=== PATIENT | male | born 1980 | race Caucasian/White ===

== ENCOUNTER 2019-11-02 17:43 | Emergency (ER) | payer OTHER ==
[2019-11-03 11:48] LABS: SARS-CoV-2 MS2 Positive; SARS-CoV-2 N Gene Negative; SARS-CoV-2 S Gene Negative; SARS-CoV-2 orf1ab Negative
== END 2019-11-02 18:16 | disposition home or self-care (01) ==
LOC: ERS 17:43
DX: R50.9 Fever, unspecified (principal); M79.10 Myalgia, unspecified site; Z20.828 Contact with and (suspected) exposure to other viral communicable diseases; F25.9 Schizoaffective disorder, unspecified
CPT/HCPCS: 87635; 99283; U0003

== ENCOUNTER 2021-04-30 05:15 | Inpatient (IN) | payer SELFPAY ==
[2021-04-30] MEDS ORDERED: Ondansetron PF 4 MG/2 ML Vial ONE ×2 (05:44→09:07)
[2021-04-30 05:56] LABS: #Eosinphils 0.2 thou/uL (0.0-0.7); #Lymphocytes 1.9 thou/uL (1.20-3.40); #Monocytes 0.8 thou/uL (0.11-0.59); #Neutrophils 7.4 thou/uL (1.40-6.50); %Basophils 0.4 % (0.0-1.0); %Eosinophils 1.6 % (0.0-10.0); %Lymphocytes 18.1 % (21.0-51.0); %Monocytes 7.5 % (0.0-10.0); %Neutrophils 72.4 % (42.0-75.0); Hemoglobin 15.8 g/dL (14.0-18.0); Mean Corpuscular HGB CONC 33.4 g/dL (32.0-36.0); Mean Corpuscular Hemoglobin 28.6 pg (27.0-31.0); Mean Corpuscular Volume 85.6 fL (78.0-98.0); Mean Platelet Volume 7.8 fL (7.4-10.4); Platelet Count 432 thou/uL (130-400); RBC Distribution Width 11.7 % (11.5-14.5); Red Blood Cell (RBC) Count 5.51 mill/uL (4.70-6.10); White Blood Cell (WBC) Count 10.2 thou/uL (4.8-10.8)
[2021-04-30 06:20] LABS: ALT (SGPT) 21 U/L (8-55); AST (SGOT) 16 U/L (5-34); Albumin 3.9 g/dL (3.5-5.0); Alkaline Phosphatase 129 U/L (40-110); Anion Gap 17 mmol/L (10-20); BUN (Urea Nitrogen) 12 mg/dL (8.9-20.6); Bilirubin, Total 0.7 mg/dL (0.2-1.2); Calc. Creatinine Clearance 0 mL/min (70-130); Calcium 10.1 mg/dL (7.8-10.44); Carbon Dioxide 26 mmol/L (22-29); Chloride 97 mmol/L (98-107); Globulin 4.2 g/dL (2.4-3.5); Glucose 127 mg/dL (70-105); Lipase 114 U/L (8-78); Potassium 3.3 mmol/L (3.5-5.1); Protein, Total 8.1 g/dL (6.0-8.3); Sodium 137 mmol/L (136-145)
[2021-04-30] MEDS ORDERED: Promethazine HCl 25 MG/ML VIAL ONE (06:44)
[2021-04-30] MEDS ORDERED: Morphine 4 MG/ML VIAL ONE (09:07)
[2021-04-30] MEDS ORDERED: Iopamidol 370 76% 100 ML VIAL ONE (10:24)
[2021-04-30] MEDS ORDERED: Acetaminophen 325 MG TAB PO PRN (11:48)
[2021-04-30] MEDS ORDERED: Ondansetron PF 4 MG/2 ML Vial IVP PRN (11:48)
[2021-04-30] MEDS ORDERED: Piperacillin/Tazobactam 4.5 GM VIAL ONE (12:17)
[2021-04-30] MEDS ORDERED: methylPREDNISolone Sod Succ/PF 125 MG/2 ML VIAL ONE (12:17)
[2021-04-30] MEDS ORDERED: diphenhydrAMINE 50 MG/ML VIAL ONE (12:17)
[2021-04-30] MEDS ORDERED: Haloperidol Lactate 5 MG/ML VIAL ONE (12:17)
[2021-04-30 12:24] LABS: Magnesium 2.2 mg/dL (1.6-2.6)
[2021-04-30] MEDS: methylPREDNISolone Sod Succ 40 MG VIAL IVP SCH ×2 (13:28→17:29)
[2021-04-30] MEDS: Lactated Ringer's 1,000 ML IV SCH ×2 (13:34→21:13)
[2021-04-30] MEDS: Potassium Chloride 10 MEQ in Premix Bag 1 BAG IVPB SCH ×4 (13:40→17:29)
[2021-04-30 14:04] VITALS: BMI 25.0
[2021-04-30] MEDS ORDERED: Mesalamine DR 400 mg Capsule PO SCH (15:00)
[2021-04-30] MEDS: Mesalamine DR 400 mg Capsule PO SCH ×3 (15:59→21:13)
[2021-04-30] MEDS: Famotidine/PF 20 mg/2ml Vial SLOW IVP SCH (21:13)
[2021-04-30 23:17] LABS: SARS-CoV-2 PCR by NAA Not Detected (NotDetected)
[2021-05-01] MEDS: methylPREDNISolone Sod Succ 40 MG VIAL IVP SCH ×5 (00:21→23:59)
[2021-05-01] MEDS: Lactated Ringer's 1,000 ML IV SCH ×3 (05:23→21:03)
[2021-05-01] MEDS: Mesalamine DR 400 mg Capsule PO SCH ×3 (08:15→21:06)
[2021-05-01] MEDS: Famotidine/PF 20 mg/2ml Vial SLOW IVP SCH ×2 (08:15→21:04)
[2021-05-01 08:28] LABS: ALT (SGPT) 14 U/L (8-55); AST (SGOT) 10 U/L (5-34); Albumin 2.8 g/dL (3.5-5.0); Alkaline Phosphatase 88 U/L (40-110); Anion Gap 12 mmol/L (10-20); BUN (Urea Nitrogen) 12 mg/dL (8.9-20.6); Bilirubin, Total 0.3 mg/dL (0.2-1.2); Calc. Creatinine Clearance 168 mL/min (70-130); Calcium 8.8 mg/dL (7.8-10.44); Carbon Dioxide 24 mmol/L (22-29); Chloride 104 mmol/L (98-107); Globulin 2.9 g/dL (2.4-3.5); Glucose 133 mg/dL (70-105); Lipase 19 U/L (8-78); Potassium 3.9 mmol/L (3.5-5.1); Protein, Total 5.7 g/dL (6.0-8.3); Sodium 136 mmol/L (136-145)
[2021-05-01 08:35] LABS: Hemoglobin 11.3 g/dL (14.0-18.0); Mean Corpuscular HGB CONC 32.4 g/dL (32.0-36.0); Mean Corpuscular Hemoglobin 28.7 pg (27.0-31.0); Mean Corpuscular Volume 88.6 fL (78.0-98.0); Mean Platelet Volume 7.7 fL (7.4-10.4); Platelet Count 285 thou/uL (130-400); RBC Distribution Width 11.8 % (11.5-14.5); Red Blood Cell (RBC) Count 3.94 mill/uL (4.70-6.10); White Blood Cell (WBC) Count 6.9 thou/uL (4.8-10.8)
[2021-05-01 08:38] LABS: HBCM Index 0.06 S/CO (0-0.79); HBSAg Index 0.24 S/CO (0-0.99); Hep A IgM AB Non-Reactive (NonReactive); Hep A IgM S/CO 0.09 S/CO (0-0.79); Hep B Surf Ag Non-Reactive S/CO (NonReactive); Hep C IgG Ab Non-Reactive (NonReactive); Hep C Index 0.06 S/CO (0-0.79); Hepatitis B Core IgM Abs Non-Reactive (NonReactive)
[2021-05-01 10:54] LABS: Band 6 % (5-11); Lymphocytes 10 % (21-51); MDiff Complete? YES; Monocytes 2 % (0-10); Neutrophil 82 % (42-75); Platelet Morphology Comment Appears Adequate
[2021-05-01 12:55] LABS: Hemoglobin 11.5 g/dL (14.0-18.0)
[2021-05-01] MEDS ORDERED: Promethazine HCl 25 MG in Sodium Chloride 0.9% 50 ML IVPB PRN (17:33)
[2021-05-01] MEDS: Azithromycin 250 MG TAB PO SCH (17:56)
[2021-05-02] MEDS: Lactated Ringer's 1,000 ML IV SCH ×3 (03:37→20:33)
[2021-05-02] MEDS: methylPREDNISolone Sod Succ 40 MG VIAL IVP SCH ×3 (05:11→16:55)
[2021-05-02 06:19] LABS: #Basophils 0.1 thou/uL (0.0-0.2); #Lymphocytes 0.9 thou/uL (1.20-3.40); #Monocytes 0.3 thou/uL (0.11-0.59); #Neutrophils 8.2 thou/uL (1.40-6.50); %Basophils 0.7 % (0.0-1.0); %Monocytes 3.3 % (0.0-10.0); %Neutrophils 86.9 % (42.0-75.0); Hemoglobin 10.7 g/dL (14.0-18.0); Mean Corpuscular HGB CONC 32.5 g/dL (32.0-36.0); Mean Corpuscular Hemoglobin 28.5 pg (27.0-31.0); Mean Corpuscular Volume 87.7 fL (78.0-98.0); Mean Platelet Volume 7.7 fL (7.4-10.4); Platelet Count 312 thou/uL (130-400); RBC Distribution Width 11.5 % (11.5-14.5); Red Blood Cell (RBC) Count 3.77 mill/uL (4.70-6.10); White Blood Cell (WBC) Count 9.4 thou/uL (4.8-10.8)
[2021-05-02 06:47] LABS: Anion Gap 10 mmol/L (10-20); BUN (Urea Nitrogen) 14 mg/dL (8.9-20.6); Calc. Creatinine Clearance 182 mL/min (70-130); Calcium 8.6 mg/dL (7.8-10.44); Carbon Dioxide 26 mmol/L (22-29); Chloride 105 mmol/L (98-107); Glucose 137 mg/dL (70-105); Sodium 137 mmol/L (136-145)
[2021-05-02] MEDS: Mesalamine DR 400 mg Capsule PO SCH ×3 (08:23→16:54)
[2021-05-02] MEDS: Famotidine/PF 20 mg/2ml Vial SLOW IVP SCH ×2 (08:26→21:06)
[2021-05-02] MEDS ORDERED: GoLYTELY 4,000 ml Bottle PO SCH (10:00)
[2021-05-02] MEDS: Azithromycin 250 MG TAB PO SCH (16:55)
[2021-05-03] MEDS: methylPREDNISolone Sod Succ 40 MG VIAL IVP SCH ×4 (01:30→20:46)
[2021-05-03] MEDS: Lactated Ringer's 1,000 ML IV SCH ×3 (03:57→19:59)
[2021-05-03 05:58] LABS: #Lymphocytes 0.7 thou/uL (1.20-3.40); #Monocytes 0.2 thou/uL (0.11-0.59); #Neutrophils 5.2 thou/uL (1.40-6.50); %Eosinophils 0.2 % (0.0-10.0); %Monocytes 2.7 % (0.0-10.0); %Neutrophils 86.1 % (42.0-75.0); Hemoglobin 10.7 g/dL (14.0-18.0); Mean Corpuscular HGB CONC 33.8 g/dL (32.0-36.0); Mean Corpuscular Volume 88.6 fL (78.0-98.0); Mean Platelet Volume 7.7 fL (7.4-10.4); Platelet Count 261 thou/uL (130-400); RBC Distribution Width 11.7 % (11.5-14.5); Red Blood Cell (RBC) Count 3.58 mill/uL (4.70-6.10)
[2021-05-03 06:18] LABS: Anion Gap 13 mmol/L (10-20); BUN (Urea Nitrogen) 8 mg/dL (8.9-20.6); Calc. Creatinine Clearance 194 mL/min (70-130); Calcium 8.4 mg/dL (7.8-10.44); Carbon Dioxide 22 mmol/L (22-29); Chloride 105 mmol/L (98-107); Glucose 139 mg/dL (70-105); Potassium 3.9 mmol/L (3.5-5.1); Sodium 136 mmol/L (136-145)
[2021-05-03] MEDS: Famotidine/PF 20 mg/2ml Vial SLOW IVP SCH ×2 (08:16→19:59)
[2021-05-03] MEDS: Mesalamine DR 400 mg Capsule PO SCH ×3 (08:17→17:29)
[2021-05-03] MEDS ORDERED: Lidocaine 1% PF 5 ML VIAL ONE (13:08)
[2021-05-03] MEDS ORDERED: PROPOFOL 200 MG/20 ML VIAL ONE (13:08)
[2021-05-03] MEDS ORDERED: Ondansetron HCl/PF 4 MG/2 ML Vial IVP PRN (13:55)
[2021-05-03] MEDS ORDERED: Promethazine HCl 25 MG/ML VIAL IM PRN (13:55)
[2021-05-03] MEDS ORDERED: Promethazine HCl 25 MG/ML VIAL IVPB PRN (13:55)
[2021-05-03] MEDS: Azithromycin 250 MG TAB PO SCH (17:29)
[2021-05-04] MEDS: Lactated Ringer's 1,000 ML IV SCH ×2 (05:04→11:00)
[2021-05-04] MEDS: methylPREDNISolone Sod Succ 40 MG VIAL IVP SCH (05:28)
[2021-05-04 07:14] LABS: QuantiFERON-TB Gold Plus Indeterminate (Negative)
[2021-05-04] MEDS: Mesalamine DR 400 mg Capsule PO SCH ×2 (07:57→11:00)
[2021-05-04] MEDS: Famotidine/PF 20 mg/2ml Vial SLOW IVP SCH (07:57)
[2021-05-04 13:23] VITALS: BP 121/68; TEMP 98.9
[2021-05-05] MEDS ORDERED: predniSONE 20 MG TAB PO SCH (08:00)
== END 2021-05-04 13:43 | disposition home or self-care (01) | DRG 387 ==
LOC: ERS 05:15 → T4-A 11:48
PROVIDERS: ADMIT Internal Medicine; ATTEND Internal Medicine
PROC: 0DBH8ZX Excision of Cecum, Via Natural or Artificial Opening Endoscopic, Diagnostic (ICD-10-PCS; principal; 2021-05-03)
PROC: 0DBB8ZX Excision of Ileum, Via Natural or Artificial Opening Endoscopic, Diagnostic (ICD-10-PCS; 2021-05-03)
PROC: 0DBE8ZX Excision of Large Intestine, Via Natural or Artificial Opening Endoscopic, Diagnostic (ICD-10-PCS; 2021-05-03)
DX: K51.911 Ulcerative colitis, unspecified with rectal bleeding (principal); Z20.822 Contact with and (suspected) exposure to COVID-19; A04.5 Campylobacter enteritis; E87.6 Hypokalemia; E88.09 Other disorders of plasma-protein metabolism, not elsewhere classified; D64.9 Anemia, unspecified; F25.9 Schizoaffective disorder, unspecified; E86.0 Dehydration; J45.909 Unspecified asthma, uncomplicated; R79.89 Other specified abnormal findings of blood chemistry; Z91.09 Other allergy status, other than to drugs and biological substances; Z79.899 Other long term (current) drug therapy; Z79.52 Long term (current) use of systemic steroids; Z91.14 Patient's other noncompliance with medication regimen
CPT/HCPCS: 36415; 71046; 74177; 80048; 80053; 80074; 83630; 83690; 83735; 85025; 86480; 87040; 87045; 87046; 87086; 87324; 87427; 87449; 88305; J1200; J1630; J2270; J2405; J2543; J2550; J2704; J2920; J2930; J3480; J7120; Q9967; S0028; U0003; U0005

== ENCOUNTER 2021-08-11 13:56 | Day surgery (SDC) | payer OTHER ==
[~2021-08-11 13:56] MED LIST: Acetaminophen 500 MG TAB PO PRN; Sodium Chloride 0.9% 1,000 ML IV SCH; Vedolizumab 300 MG in Sodium Chloride 0.9% 250 ML 250 ML IVPB SCH
[2021-08-11] MEDS ORDERED: Acetaminophen 500 MG TAB ONE ×2 (14:14)
[2021-08-11 14:31] VITALS: BP 117/62
== END 2021-08-11 15:07 | disposition home or self-care (01) ==
LOC: ONC/OP 13:56
PROVIDERS: ATTEND Internal Medicine Gastroenterology
DX: K51.90 Ulcerative colitis, unspecified, without complications (principal); Z91.048 Other nonmedicinal substance allergy status
CPT/HCPCS: 96413

== ENCOUNTER 2021-09-08 14:09 | Day surgery (SDC) | payer OTHER ==
[2021-09-08] MEDS ORDERED: Acetaminophen 500 MG TAB ONE ×2 (14:29)
[2021-09-08 14:35] VITALS: BP 136/86
== END 2021-09-08 15:53 | disposition home or self-care (01) ==
LOC: ONC/OP 14:09
PROVIDERS: ATTEND Internal Medicine Gastroenterology
DX: K51.90 Ulcerative colitis, unspecified, without complications (principal); Z88.8 Allergy status to other drugs, medicaments and biological substances; Z91.048 Other nonmedicinal substance allergy status
CPT/HCPCS: 96413

== ENCOUNTER 2021-11-04 12:57 | Day surgery (SDC) | payer OTHER ==
[2021-11-04] MEDS ORDERED: Acetaminophen 500 MG TAB ONE ×2 (13:25)
[2021-11-04 13:32] VITALS: BP 131/74; TEMP 97.7
== END 2021-11-04 14:47 | disposition home or self-care (01) ==
LOC: ONC/OP 12:57
PROVIDERS: ATTEND Internal Medicine Gastroenterology
DX: K51.90 Ulcerative colitis, unspecified, without complications (principal); Z88.8 Allergy status to other drugs, medicaments and biological substances
CPT/HCPCS: 96413

== ENCOUNTER 2021-12-30 12:59 | Day surgery (SDC) | payer OTHER ==
[~2021-12-30 12:59] MED LIST changes: -Acetaminophen 500 MG TAB PO PRN; +Acetaminophen 500 MG TAB PO SCH; -Sodium Chloride 0.9% 1,000 ML IV SCH
[2021-12-30] MEDS ORDERED: Acetaminophen 500 MG TAB ONE ×2 (13:06)
[2021-12-30 13:42] VITALS: BP 135/94; TEMP 98.5
== END 2021-12-30 15:14 | disposition home or self-care (01) ==
LOC: ONC/OP 12:59
PROVIDERS: ATTEND Internal Medicine Gastroenterology
DX: K51.90 Ulcerative colitis, unspecified, without complications (principal); Z88.8 Allergy status to other drugs, medicaments and biological substances
CPT/HCPCS: 96413

== ENCOUNTER → 2022-02-24 | Day surgery (SDC) | payer OTHER ==
[~2022-02-24] MED LIST changes: +Acetaminophen 500 MG TAB ONE
[2022-02-24 14:16] VITALS: BP 128/89; TEMP 97.9
== END | disposition home or self-care (01) ==
LOC: ONC/OP 13:12
PROVIDERS: ATTEND Internal Medicine Gastroenterology
DX: K51.90 Ulcerative colitis, unspecified, without complications (principal); Z88.8 Allergy status to other drugs, medicaments and biological substances; Z91.048 Other nonmedicinal substance allergy status
CPT/HCPCS: 96413

== ENCOUNTER 2022-06-16 13:11 | Day surgery (SDC) | payer OTHER ==
[~2022-06-16 13:11] MED LIST changes: -Acetaminophen 500 MG TAB ONE
[2022-06-16] MEDS ORDERED: Acetaminophen 500 MG TAB ONE (13:38)
[2022-06-16] MEDS ORDERED: diphenhydrAMINE 25 MG CAP ONE (13:38)
[2022-06-16 14:52] VITALS: BP 127/81; TEMP 97.9
== END 2022-06-16 14:53 | disposition home or self-care (01) ==
LOC: ONC/OP 13:11
PROVIDERS: ATTEND Internal Medicine Gastroenterology
DX: K51.90 Ulcerative colitis, unspecified, without complications (principal); Z88.8 Allergy status to other drugs, medicaments and biological substances; Z91.048 Other nonmedicinal substance allergy status
CPT/HCPCS: 96413

== ENCOUNTER 2022-08-11 12:55 | Day surgery (SDC) | payer SELFPAY ==
[~2022-08-11 12:55] MED LIST changes: +EPINEPHrine 1 MG/ML AMP IM PRN; +Sodium Chloride 0.9% 500 ML IV PRN; +diphenhydrAMINE 50 MG/ML VIAL IVP PRN
[2022-08-11] MEDS ORDERED: Acetaminophen 500 MG TAB ONE (13:09)
[2022-08-11] MEDS ORDERED: Acetaminophen 500 MG TAB PO SCH (13:45)
[2022-08-11 13:47] VITALS: BP 126/84; TEMP 97.6
== END 2022-08-11 14:58 | disposition home or self-care (01) ==
LOC: ONC/OP 12:55
PROVIDERS: ATTEND Internal Medicine Gastroenterology
DX: K51.90 Ulcerative colitis, unspecified, without complications (principal); Z88.8 Allergy status to other drugs, medicaments and biological substances; Z91.048 Other nonmedicinal substance allergy status
CPT/HCPCS: 96413; J3380; J7050

== ENCOUNTER 2022-10-09 13:30 | Day surgery (SDC) | payer OTHER, SELFPAY ==
[~2022-10-09 13:30] MED LIST changes: +diphenhydrAMINE 25 MG CAP PO SCH
[2022-10-09 14:04] VITALS: BP 120/77; TEMP 97.7
[2022-10-09] MEDS ORDERED: diphenhydrAMINE 25 MG CAP ONE (14:17)
[2022-10-09] MEDS ORDERED: Acetaminophen 500 MG TAB ONE (14:17)
== END 2022-10-09 15:16 | disposition home or self-care (01) ==
LOC: ONC/OP 13:30
PROVIDERS: ATTEND Internal Medicine Gastroenterology
DX: K51.90 Ulcerative colitis, unspecified, without complications (principal); Z88.8 Allergy status to other drugs, medicaments and biological substances
CPT/HCPCS: 96413

== ENCOUNTER 2022-12-04 13:26 | Day surgery (SDC) | payer SELFPAY ==
[2022-12-04] MEDS ORDERED: Acetaminophen 500 MG TAB ONE (13:53)
[2022-12-04] MEDS ORDERED: diphenhydrAMINE 25 MG CAP ONE (13:53)
[2022-12-04 14:25] VITALS: BP 128/87; TEMP 97.9
== END 2022-12-04 15:25 | disposition home or self-care (01) ==
LOC: ONC/OP 13:26
PROVIDERS: ATTEND Internal Medicine Gastroenterology
DX: K51.90 Ulcerative colitis, unspecified, without complications (principal); Z88.8 Allergy status to other drugs, medicaments and biological substances
CPT/HCPCS: 96413

== ENCOUNTER 2023-01-31 10:00 | Day surgery (SDC) | payer SELFPAY ==
[2023-01-31] MEDS ORDERED: Acetaminophen 500 MG TAB PO SCH (10:30)
[2023-01-31] MEDS ORDERED: diphenhydrAMINE 25 MG CAP PO SCH (10:30)
[2023-01-31] MEDS ORDERED: Vedolizumab 300 MG in Sodium Chloride 0.9% 250 ML 250 ML IVPB SCH (11:00)
[2023-01-31] MEDS ORDERED: Acetaminophen 500 MG TAB ONE (11:25)
[2023-01-31] MEDS ORDERED: diphenhydrAMINE 25 MG CAP ONE (11:25)
[2023-01-31 16:11] VITALS: BP 130/76; TEMP 98.3
== END 2023-01-31 12:24 | disposition home or self-care (01) ==
LOC: ONC/OP 10:00
PROVIDERS: ATTEND Internal Medicine Gastroenterology
DX: K51.90 Ulcerative colitis, unspecified, without complications (principal); Z88.8 Allergy status to other drugs, medicaments and biological substances
CPT/HCPCS: 96413; J3380; J7050

== ENCOUNTER 2023-03-28 09:52 | Day surgery (SDC) | payer SELFPAY ==
[2023-03-28] MEDS ORDERED: diphenhydrAMINE 25 MG CAP PO SCH (10:00)
[2023-03-28] MEDS ORDERED: Acetaminophen 500 MG TAB PO SCH (10:00)
[2023-03-28] MEDS ORDERED: Vedolizumab 300 MG in Sodium Chloride 0.9% 250 ML 250 ML IVPB SCH (10:00)
[2023-03-28] MEDS ORDERED: diphenhydrAMINE 25 MG CAP ONE (10:59)
[2023-03-28] MEDS ORDERED: Acetaminophen 500 MG TAB ONE (10:59)
[2023-03-28 11:26] VITALS: BP 135/86; TEMP 97.7
== END 2023-03-28 12:05 | disposition home or self-care (01) ==
LOC: ONC/OP 09:52
PROVIDERS: ATTEND Internal Medicine Gastroenterology
DX: K51.90 Ulcerative colitis, unspecified, without complications (principal); Z88.8 Allergy status to other drugs, medicaments and biological substances
CPT/HCPCS: 96413; J3380; J7050

== ENCOUNTER 2023-05-23 10:18 | Day surgery (SDC) | payer SELFPAY ==
[~2023-05-23 10:18] MED LIST changes: -EPINEPHrine 1 MG/ML AMP IM PRN; -Sodium Chloride 0.9% 500 ML IV PRN; -diphenhydrAMINE 50 MG/ML VIAL IVP PRN
[2023-05-23] MEDS ORDERED: Acetaminophen 500 MG TAB ONE (10:39)
[2023-05-23] MEDS ORDERED: diphenhydrAMINE 25 MG CAP ONE (10:40)
[2023-05-23 10:54] VITALS: BP 131/81; TEMP 97.8
== END 2023-05-23 12:01 | disposition home or self-care (01) ==
LOC: ONC/OP 10:18
PROVIDERS: ATTEND Internal Medicine Gastroenterology
DX: K51.90 Ulcerative colitis, unspecified, without complications (principal); Z88.8 Allergy status to other drugs, medicaments and biological substances; Z91.048 Other nonmedicinal substance allergy status
CPT/HCPCS: 96413; J3380; J7050

== ENCOUNTER 2023-07-18 10:09 | Day surgery (SDC) | payer SELFPAY ==
[2023-07-18] MEDS ORDERED: diphenhydrAMINE 25 MG CAP ONE (10:58)
[2023-07-18] MEDS ORDERED: Acetaminophen 500 MG TAB ONE (10:58)
[2023-07-18] MEDS: Acetaminophen 500 MG TAB PO SCH (10:59)
[2023-07-18] MEDS: diphenhydrAMINE 25 MG CAP PO SCH (10:59)
[2023-07-18] MEDS: Vedolizumab 300 MG in Sodium Chloride 0.9% 250 ML 250 ML IVPB SCH (11:06)
[2023-07-18 12:02] VITALS: BP 131/86; TEMP 97.9
== END 2023-07-18 12:06 | disposition home or self-care (01) ==
LOC: ONC/OP 10:09
PROVIDERS: ATTEND Internal Medicine Gastroenterology
DX: K51.90 Ulcerative colitis, unspecified, without complications (principal); Z88.8 Allergy status to other drugs, medicaments and biological substances; Z91.048 Other nonmedicinal substance allergy status
CPT/HCPCS: 96413; J3380; J7050

== ENCOUNTER 2024-03-03 12:15 | Day surgery (SDC) | payer SELFPAY ==
[2024-03-03] MEDS ORDERED: Acetaminophen 500 MG TAB ONE (12:54)
[2024-03-03] MEDS ORDERED: diphenhydrAMINE 25 MG CAP ONE (12:54)
[2024-03-03] MEDS: Acetaminophen 500 MG TAB PO SCH (12:55)
[2024-03-03] MEDS: diphenhydrAMINE 25 MG CAP PO SCH (12:55)
[2024-03-03] MEDS: Vedolizumab 300 MG in Sodium Chloride 0.9% 250 ML 250 ML IVPB SCH (13:10)
[2024-03-03 13:42] VITALS: BP 121/83; TEMP 98.3
== END 2024-03-03 14:09 | disposition home or self-care (01) ==
LOC: ONC/OP 12:15
PROVIDERS: ATTEND Internal Medicine Gastroenterology
DX: K51.90 Ulcerative colitis, unspecified, without complications (principal); Z88.8 Allergy status to other drugs, medicaments and biological substances
CPT/HCPCS: 96413; J3380; J7050

== ENCOUNTER 2024-04-28 12:32 | Day surgery (SDC) | payer SELFPAY ==
[2024-04-28] MEDS ORDERED: Acetaminophen 500 MG TAB ONE (13:05)
[2024-04-28] MEDS ORDERED: diphenhydrAMINE 25 MG CAP ONE (13:05)
[2024-04-28] MEDS: diphenhydrAMINE 25 MG CAP PO SCH (13:05)
[2024-04-28] MEDS: Acetaminophen 500 MG TAB PO SCH (13:06)
[2024-04-28] MEDS: Vedolizumab 300 MG in Sodium Chloride 0.9% 250 ML 250 ML IVPB SCH (13:38)
[2024-04-28 14:46] VITALS: BP 137/92; TEMP 98.3
== END 2024-04-28 14:47 | disposition home or self-care (01) ==
LOC: ONC/OP 12:32
PROVIDERS: ATTEND Internal Medicine Gastroenterology
DX: K51.90 Ulcerative colitis, unspecified, without complications (principal); Z88.8 Allergy status to other drugs, medicaments and biological substances
CPT/HCPCS: 96413; J3380; J7050

== ENCOUNTER 2024-12-09 11:23 | Day surgery (SDC) | payer SELFPAY ==
[~2024-12-09 11:23] MED LIST changes: -Acetaminophen 500 MG TAB PO SCH; -diphenhydrAMINE 25 MG CAP PO SCH
[2024-12-09 12:11] VITALS: BP 122/80; TEMP 98.3
[2024-12-09] MEDS: Vedolizumab 300 MG, Sterile Water 5 ML in Sodium Chloride 0.9% 250 ML 250 ML IVPB SCH (12:23)
== END 2024-12-09 13:19 | disposition home or self-care (01) ==
LOC: ONC/OP 11:23
PROVIDERS: ATTEND Internal Medicine Gastroenterology
DX: K51.90 Ulcerative colitis, unspecified, without complications (principal); Z88.8 Allergy status to other drugs, medicaments and biological substances
CPT/HCPCS: 96413; J3380; J7050

== ENCOUNTER 2025-02-03 11:16 | Day surgery (SDC) | payer SELFPAY ==
[2025-02-03] MEDS: Vedolizumab 300 MG, Sterile Water 5 ML in Sodium Chloride 0.9% 250 ML 250 ML IVPB SCH (12:17)
[2025-02-03 12:29] VITALS: BP 136/81; TEMP 97.5
== END 2025-02-03 13:21 | disposition home or self-care (01) ==
LOC: ONC/OP 11:16
PROVIDERS: ATTEND Internal Medicine Gastroenterology
DX: K51.90 Ulcerative colitis, unspecified, without complications (principal); Z88.8 Allergy status to other drugs, medicaments and biological substances
CPT/HCPCS: 96413; J3380; J7050

== ENCOUNTER 2025-03-30 11:20 | Day surgery (SDC) | payer SELFPAY ==
[2025-03-30] MEDS: Vedolizumab 300 MG, Sterile Water 5 ML in Sodium Chloride 0.9% 250 ML 250 ML IVPB SCH (12:17)
[2025-03-30 13:46] VITALS: BP 130/81; TEMP 98.1
== END 2025-03-30 13:47 | disposition home or self-care (01) ==
LOC: ONC/OP 11:20
PROVIDERS: ATTEND Internal Medicine Gastroenterology
DX: K51.90 Ulcerative colitis, unspecified, without complications (principal); Z88.8 Allergy status to other drugs, medicaments and biological substances
CPT/HCPCS: 96413; J3380; J7050